=== PATIENT | female | born 1965 | race Caucasian/White ===

== ENCOUNTER 2019-08-24 06:33 | Day surgery (SDC) | payer MEDICAID ==
[~2019-08-24 06:33] MED LIST: Midazolam 1 MG/ML 2 ML SDV ONE; fentaNYL 100 MCG/2 ML SDV ONE
[2019-08-24] MEDS ORDERED: fentaNYL 100 MCG/2 ML SDV IV ONE ×3 (06:34→07:31)
[2019-08-24] MEDS ORDERED: Midazolam 1 MG/ML 2 ML SDV IV ONE ×3 (06:34→07:32)
[2019-08-24] MEDS ORDERED: Dextrose 5%-0.45% NaCl 1,000 ML IV SCH (07:15)
--- NOTE | 2019-08-24 10:55 | OR ---
DATE: 08/24/2019 PROCEDURE: Esophagogastroduodenoscopy and multiple pinch biopsies. INSTRUMENT USED: [id number]-HQ190 Olympus video panendoscope. PREMEDICATIONS: No oral or topical anesthesia used. Fentanyl 100 mcg intravenous, Versed 2 mg intravenous, nasal O2 cannula. The procedure was done under pulse oximetry, BP recording, and bus driver/monitor. INDICATION: The patient with persistent high dysphagia as well as dyspepsia, unexplained and not responsive to medical measures. Esophagogastroduodenoscopy is performed for detection of any active erosive lesions, Will esophagus and/or malignancy also under consideration, H. pylori status to be determined, biopsies to be obtained for esophageal eosinophilia if indicated, esophageal dilatations if indicated, endoscopic hemostasis therapy if needed. PROCEDURE IN DETAIL: The scope was passed with ease. Adequate visualization of the esophagus was made from proximal to distal areas. No upper esophageal lesions were identified. No distal esophageal stricture. No uphill or downhill esophageal varices. No Thea-Cannon tear. No evidence of erosive esophagitis by [place] criteria. No esophageal polyp or tumor mass identified. Z-line was noted at around 39 cm distal to the oral verge, configuration consistent with grade 1 by ZAP classification. No proximal gastric varices noted. Gastric fundus examination by retroflexion showed benign appearing diminutive polyps. No gastric ulcer, malignant mass, or vascular ectasia identified. Duodenal bulb showed no ulcer. Visualized second part of the duodenum is unremarkable. Multiple pinch biopsies were taken from the gastric antrum and proximal body and sent for PyloriTek test for H. pylori and histopathology. Four-quadrant biopsies were taken from the distal and proximal esophagus and sent for any evidence of esophageal eosinophilia. No bleeding was noted from any of the visualized areas at the completion of examination. Photographs were taken of the duodenal bulb, gastric antrum, fundus, and distal esophagus. IMPRESSION: Diminutive gastric fundus polyps. The patient tolerated the procedure well. [facility] /[id number]
== END 2019-08-24 09:43 | disposition home or self-care (01) ==
LOC: DL.ENDO 06:33
PROVIDERS: ATTEND Internal Medicine Gastroenterology
DX: K31.7 Polyp of stomach and duodenum (principal); Z90.49 Acquired absence of other specified parts of digestive tract
CPT/HCPCS: 43239; 81025; 87077; J2250; J3010; J7042

== ENCOUNTER 2021-04-22 17:50 | Emergency (ER) | payer MEDICAID ==
--- NOTE | 2021-04-22 18:43 | CR ---
PROCEDURE INFORMATION: Exam: XR Chest Exam date and time: 04/22/2021 6:12 PM Age: 56 years old Clinical indication: Other: Near syncope TECHNIQUE: Imaging protocol: XR of the chest. Views: 1 view. COMPARISON: No relevant prior studies available. FINDINGS: Lungs: No suspicious pulmonary nodules or areas of lung consolidation. Pleural spaces: Unremarkable. No pleural effusion. No pneumothorax. Heart/Mediastinum: Unremarkable. No cardiomegaly. Bones/joints: Age appropriate. IMPRESSION: No active disease of the chest.
[2021-04-22] MEDS ORDERED: Sodium Chloride 0.9% 1,000 ML IV ONE (19:39)
[2021-04-22] MEDS ORDERED: Aspirin 81 MG Tab.Chew PO ONE (20:34)
--- NOTE | 2021-04-22 20:53 | EDM.PDOC ---
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 Denied chest pain. Has had palpations in passed but did not feel same. Only outside in heat approximately 10 minutes. No nausea or vomiting. No drugs or alcohol. no weakness. - Related Data Allergies Allergy/AdvReac Type Severity Reaction Status Date / Time No Known Allergies Allergy Verified 04/22/21 18:00 Home Meds: Home Meds Ibuprofen [Motrin] 600 mg PO .PRN PRN 06/22/14 [History] Ascorbic Acid 500 mg PO DAILY 08/23/19 [History] Cholecalciferol (Vitamin D3) [Vitamin D3] 400 units PO DAILY 08/23/19 [History] Cyanocobalamin (Vitamin B12) [Vitamin B12] 500 mcg PO DAILY 08/23/19 [History] Flaxseed Oil [Flaxseed] 1,000 mg PO DAILY 08/23/19 [History] Iron,Carbonyl [Iron Chews] 45 mg PO DAILY 08/23/19 [History] Loratadine 10 mg PO DAILY 08/23/19 [History] Magnesium 250 mg PO DAILY 08/23/19 [History] Multivitamin [Poly-Vitamin] 1 tab PO DAILY 08/23/19 [History] Tranexamic Acid [Lysteda] 1,300 mg PO TID 08/23/19 [History] Vitamin A 10,000 unit PO DAILY 08/23/19 [History] Vitamin E 400 units PO DAILY 08/23/19 [History] Amitriptyline [Elavil] 25 mg PO BEDTIME 04/22/21 [History] Past Medical History HEENT History: Reports: None Cardiovascular History: Reports: Arrhythmia Respiratory History: Reports: None Gastrointestinal History: Reports: None Genitourinary History: Reports: None TISSUE TECHNOLOGIST History: Reports: Musculoskeletal History: Reports: None Neurological History: Reports: None Psychiatric History: Reports: Anxiety, Panic Attack Endocrine/Metabolic History: Reports: None Hematologic History: Reports: Anemia Oncologic (Cancer) History: Reports: None Dermatologic History: Reports: None - Infectious Disease History Infectious Disease History: Reports: Chicken Pox, Measles - Past Surgical History HEENT Surgical History: Reports: None Cardiovascular Surgical History: Reports: None Respiratory Surgical History: Reports: None GI Surgical History: Reports: Appendectomy Female Surgical History: Reports: Breast Biopsy, Section Musculoskeletal Surgical History: Reports: None Social & Family History - Family History Family Medical History: No Pertinent Family History - Tobacco Use Tobacco Use Status *Q: Never Tobacco User Second Hand Smoke Exposure: No - Caffeine Use Caffeine Use: Reports: None - Recreational Drug Use Recreational Drug Use: No ED ROS GENERAL - Review of Systems Review Of Systems: Comprehensive ROS is negative, except as noted in HPI. ED EXAM, GENERAL - Physical Exam Exam: See Below Exam Limited By: No Limitations General Appearance: Alert, Anxious Ears: Normal External Exam, Hearing Grossly Normal Nose: Normal Inspection, Normal Mucosa Throat/Mouth: Normal Inspection, Normal Lips Head: Atraumatic, Normocephalic Neck: Normal Inspection Respiratory/Chest: No Respiratory Distress, Lungs Clear, Normal Breath Sounds Cardiovascular: Normal Peripheral Pulses, Regular Rate, Rhythm, No Edema GI/Abdominal: Normal Bowel Sounds, Soft, Non-Tender Back Exam: Normal Inspection Extremities: Normal Inspection Neurological: Alert, Oriented, Normal Cognition Psychiatric: Anxious Skin Exam: Warm, Dry, Intact, Normal Color #1 Interpretation EKG Date: 04/22/21 Time: 17:56 Rhythm: Other (sinus tach) Rate (Beats/Min): 104 [place]: Normal P-Wave: Present QRS: Normal ST-T: Normal Comparison: NA - No Prior EKG #2 Interpretation EKG Date: 04/22/21 Time: 20:33 Rhythm: NSR Rate (Beats/Min): 83 [place]: Normal P-Wave: Present QRS: Normal Comparison: No Change Course - Vital Signs Last Recorded V/S: Last Vital Signs Temp 98 F 04/22/21 18:01 Pulse 119 H 04/22/21 18:01 Resp 20 04/22/21 18:01 BP 134/86 04/22/21 18:01 Pulse Ox 97 04/22/21 18:01 - Orders/Labs/Meds Labs: Laboratory Tests 04/22/21 04/22/21 04/22/21 Range/Units 18:10 18:10 18:10 WBC 4.8 L (5.0-10.0) 10^3/uL RBC 5.05 (4.2-5.4) 10^6/uL Hgb 14.8 (12.0-16.0) g/dL Hct 42.7 (37.0-47.0) % MCV 84.6 (80-100) fL MCH 29.3 (27.0-34.0) pg MCHC 34.7 (33.0-35.0) g/dL Plt Count 187 (150-450) 10^3/uL Neut % (Auto) 63.0 (42.2-75.2) % Lymph % (Auto) 20.0 L (20.5-50.1) % [place] % (Auto) 12.2 H (2-8) % Eos % (Auto) 4.4 H (1.0-3.0) % Baso % (Auto) 0.4 (0.0-1.0) % D-Dimer, Quantitative (0-400) ng/mL Sodium 142 (136-145) mmol/L Potassium 4.0 (3.5-5.1) mmol/L Chloride 106 (98-107) mmol/L Carbon Dioxide 28 (21-32) mmol/L Anion Gap 12.0 (7-13) mEq/L BUN 13 (7-18) mg/dL Creatinine 1.04 H (0.55-1.02) mg/dL Est Cr Clr Drug Dosing 57.12 mL/min Estimated GFR (MDRD) 55 BUN/Creatinine Ratio 12.5 (No establ ref range) Glucose 97 (70-99) mg/dL Lactic Acid 0.5 (0.4-2.0) mmol/L Calcium 8.8 (8.5-10.1) mg/dL Total Bilirubin 0.6 (0.2-1.0) mg/dL AST 24 (15-37) U/L ALT 34 (14-59) U/L Alkaline Phosphatase 83 (46-116) U/L Troponin I High Sens 56 H* (<=51) pg/mL Total Protein 7.2 (6.4-8.2) g/dL Albumin 3.9 (3.4-5.0) g/dL Globulin 3.3 Albumin/Globulin Ratio 1.2 TSH, Ultra Sensitive (0.36-3.74) uIU/mL Urine Color (YELLOW) Urine Appearance (CLEAR) Urine pH (5.0-9.0) Ur Specific [place] (1.005-1.030) Urine Protein (NEGATIVE) Urine Glucose (UA) (NEGATIVE) Urine Ketones (NEGATIVE) Urine Occult Blood (NEGATIVE) Urine Nitrite (NEGATIVE) Urine Bilirubin (NEGATIVE) Urine Urobilinogen (0.2-1.0) mg/dL Ur Leukocyte Esterase (NEGATIVE) Urine RBC /HPF Urine WBC (0-5/HPF) /HPF Ur Epithelial Cells (NOT SEEN) /HPF Amorphous Sediment (NOT SEEN) /HPF Urine Bacteria (0-FEW/HPF) /HPF Urine Mucus (NOT SEEN) /LPF SARS-CoV-2 RNA (RUTH) (NEGATIVE) 04/22/21 04/22/21 04/22/21 Range/Units 18:10 18:10 20:05 WBC (5.0-10.0) 10^3/uL RBC (4.2-5.4) 10^6/uL Hgb (12.0-16.0) g/dL Hct (37.0-47.0) % MCV (80-100) fL MCH (27.0-34.0) pg MCHC (33.0-35.0) g/dL Plt Count (150-450) 10^3/uL Neut % (Auto) (42.2-75.2) % Lymph % (Auto) (20.5-50.1) % [place] % (Auto) (2-8) % Eos % (Auto) (1.0-3.0) % Baso % (Auto) (0.0-1.0) % D-Dimer, Quantitative < 100 (0-400) ng/mL Sodium (136-145) mmol/L Potassium (3.5-5.1) mmol/L Chloride (98-107) mmol/L Carbon Dioxide (21-32) mmol/L Anion Gap (7-13) mEq/L BUN (7-18) mg/dL Creatinine (0.55-1.02) mg/dL Est Cr Clr Drug Dosing mL/min Estimated GFR (MDRD) BUN/Creatinine Ratio (No establ ref range) Glucose (70-99) mg/dL Lactic Acid (0.4-2.0) mmol/L Calcium (8.5-10.1) mg/dL Total Bilirubin (0.2-1.0) mg/dL AST (15-37) U/L ALT (14-59) U/L Alkaline Phosphatase (46-116) U/L Troponin I High Sens 210 H* (<=51) pg/mL Total Protein (6.4-8.2) g/dL Albumin (3.4-5.0) g/dL Globulin Albumin/Globulin Ratio TSH, Ultra Sensitive 3.98 H (0.36-3.74) uIU/mL Urine Color (YELLOW) Urine Appearance (CLEAR) Urine pH (5.0-9.0) Ur Specific [place] (1.005-1.030) Urine Protein (NEGATIVE) Urine Glucose (UA) (NEGATIVE) Urine Ketones (NEGATIVE) Urine Occult Blood (NEGATIVE) Urine Nitrite (NEGATIVE) Urine Bilirubin (NEGATIVE) Urine Urobilinogen (0.2-1.0) mg/dL Ur Leukocyte Esterase (NEGATIVE) Urine RBC /HPF Urine WBC (0-5/HPF) /HPF Ur Epithelial Cells (NOT SEEN) /HPF Amorphous Sediment (NOT SEEN) /HPF Urine Bacteria (0-FEW/HPF) /HPF Urine Mucus (NOT SEEN) /LPF SARS-CoV-2 RNA (RUTH) (NEGATIVE) 04/22/21 04/22/21 Range/Units 22:07 22:38 WBC (5.0-10.0) 10^3/uL RBC (4.2-5.4) 10^6/uL Hgb (12.0-16.0) g/dL Hct (37.0-47.0) % MCV (80-100) fL MCH (27.0-34.0) pg MCHC (33.0-35.0) g/dL Plt Count (150-450) 10^3/uL Neut % (Auto) (42.2-75.2) % Lymph % (Auto) (20.5-50.1) % [place] % (Auto) (2-8) % Eos % (Auto) (1.0-3.0) % Baso % (Auto) (0.0-1.0) % D-Dimer, Quantitative (0-400) ng/mL Sodium (136-145) mmol/L Potassium (3.5-5.1) mmol/L Chloride (98-107) mmol/L Carbon Dioxide (21-32) mmol/L Anion Gap (7-13) mEq/L BUN (7-18) mg/dL Creatinine (0.55-1.02) mg/dL Est Cr Clr Drug Dosing mL/min Estimated GFR (MDRD) BUN/Creatinine Ratio (No establ ref range) Glucose (70-99) mg/dL Lactic Acid (0.4-2.0) mmol/L Calcium (8.5-10.1) mg/dL Total Bilirubin (0.2-1.0) mg/dL AST (15-37) U/L ALT (14-59) U/L Alkaline Phosphatase (46-116) U/L Troponin I High Sens (<=51) pg/mL Total Protein (6.4-8.2) g/dL Albumin (3.4-5.0) g/dL Globulin Albumin/Globulin Ratio TSH, Ultra Sensitive (0.36-3.74) uIU/mL Urine Color Yellow (YELLOW) Urine Appearance Slightly cloudy (CLEAR) Urine pH 7.0 (5.0-9.0) Ur Specific [place] 1.020 (1.005-1.030) Urine Protein Negative (NEGATIVE) Urine Glucose (UA) Negative (NEGATIVE) Urine Ketones Negative (NEGATIVE) Urine Occult Blood Trace-intact H (NEGATIVE) Urine Nitrite Negative (NEGATIVE) Urine Bilirubin Negative (NEGATIVE) Urine Urobilinogen 0.2 (0.2-1.0) mg/dL Ur Leukocyte Esterase Small H (NEGATIVE) Urine RBC 5-10 H /HPF Urine WBC 20-30 H (0-5/HPF) /HPF Ur Epithelial Cells Few (NOT SEEN) /HPF Amorphous Sediment Rare (NOT SEEN) /HPF Urine Bacteria Few (0-FEW/HPF) /HPF Urine Mucus Rare (NOT SEEN) /LPF SARS-CoV-2 RNA (RUTH) Negative (NEGATIVE) Meds: Medications Discontinued Medications Generic Name Dose Route Start Last Admin Trade Name Freq PRN Reason Stop Dose Admin Aspirin 324 mg 04/22/21 20:34 04/22/21 21:07 Aspirin 81 Mg Tab.Chew PO 04/22/21 20:35 324 mg ONETIME ONE Administration Heparin Sodium (Porcine) 3,500 units 04/22/21 22:25 04/22/21 22:56 Heparin Sodium 5,000 Units/Ml Vial IVPUSH 04/22/21 22:26 3,500 units .BOLUS ONE Administration Sodium Chloride 1,000 mls @ 500 mls/hr 04/22/21 19:39 04/22/21 20:11 Normal Saline IV 04/22/21 21:38 500 mls/hr .BOLUS ONE Administration Heparin Sodium/Sodium Chloride 25,000 units in 500 mls @ 14.043 mls/hr 04/22/21 22:26 04/22/21 22:55 Heparin 25,000 Units In 1/2 Ns 500 Ml IV 04/24/21 10:02 12 units/kg/hr TITRATE ONE 14.043 mls/hr Administration Protocol 12 UNITS/KG/HR Lorazepam 0.05 mg 04/22/21 22:34 04/22/21 23:15 Lorazepam 2 Mg/Ml Sdv IVPUSH 04/22/21 22:35 Not Given ONETIME ONE Lorazepam 0.5 mg 04/22/21 23:01 04/22/21 23:01 Lorazepam 2 Mg/Ml Sdv IVPUSH 04/22/21 23:02 0.5 mg ONETIME ONE Administration - Re-Assessments/Exams Free Text/Narrative Re-Assessment/Exam: [facility] no bed available. [facility] accepting Departure - Departure Time of Disposition: 00:05 Disposition: DC/Tfer to Acute Hospital 02 Reason for Transfer *Q: Other Condition: Undetermined Clinical Impression: NSTEMI (non-ST elevated myocardial infarction) Referrals: PCP,None [Primary Care Provider] - Forms: ED Department Discharge Sepsis Event Note (ED) - Evaluation Sepsis Screening Result: No Definite Risk
[2021-04-22] MEDS ORDERED: Heparin Sodium 5,000 Units/ML Vial IVPUSH ONE (22:25)
[2021-04-22] MEDS ORDERED: Heparin Sodium/0.45% NaCl 25,000 UNITS/500 ML BAG IV ONE (22:26)
[2021-04-22] MEDS ORDERED: LORazepam 2 MG/ML SDV IVPUSH ONE ×2 (22:34→23:01)
== END 2021-04-23 00:05 ==
LOC: DL.ED 17:50
DX: I21.4 Non-ST elevation (NSTEMI) myocardial infarction (principal); Z20.822 Contact with and (suspected) exposure to COVID-19
CPT/HCPCS: 36415; 71045; 80053; 81001; 83605; 84443; 84484; 85025; 85379; 87040; 87086; 93005; 93010; 96365; 96375; 99284; 99285-25; A9270-GY; J1644; J2060; J7030; U0002